=== PATIENT | male | born 1975 | race Caucasian/White ===

== ENCOUNTER 2016-09-20 23:14 | Emergency (ER) | payer MEDICAID ==
[2016-09-21 02:08] VITALS: BP 134/90
== END 2016-09-21 02:08 | disposition home or self-care (01) ==
LOC: ED 23:14
DX: H65.91 Unspecified nonsuppurative otitis media, right ear (principal); R51 Headache

== ENCOUNTER 2017-07-11 19:40 | Emergency (ER) | payer MEDICAID ==
[2017-07-11 21:38] VITALS: BP 159/99
== END 2017-07-11 21:38 | disposition home or self-care (01) ==
LOC: ED 19:40
DX: R04.0 Epistaxis (principal)

== ENCOUNTER 2020-01-31 21:51 | Emergency (ER) | payer OTHER, MEDICAID ==
[~2020-01-31] VITALS: Ht 167.6 cm; Wt 85.3 kg
[2020-01-31 22:03] VITALS: Ht 167.6 cm; Wt 85.3 kg
[2020-01-31 23:25] VITALS: BP 145/71
== END 2020-01-31 23:25 | disposition home or self-care (01) ==
LOC: ED 21:51
DX: S39.012A Strain of muscle, fascia and tendon of lower back, initial encounter (principal); V49.49XA Driver injured in collision with other motor vehicles in traffic accident, initial encounter; Y93.I9 Activity, other involving external motion; Y92.413 State road as the place of occurrence of the external cause; Y99.8 Other external cause status
CPT/HCPCS: J1885